=== PATIENT | female | born 1945 | race Caucasian/White ===

== ENCOUNTER → 2018-09-18 | Outpatient (CLI) | payer MEDICARE ==
--- NOTE | 2018-09-18 14:36 | PCVCIMAG ---
EXAM: VENOUS DUPLEX RIGHT UPPER EXTREMITY INDICATION: Right index finger numbness, discoloration, and pain. FINDINGS: Right arm: Satisfactory arterial waveforms in the innominate artery, right subclavian, right axillary, right brachial, right radial, and right ulnar arteries without obvious flow-limiting arterial stenosis. Right arm systolic pressure 150 mmHg and left arm 154 mmHg. IMPRESSION: Arterial duplex right arm shows no evidence of flow-limiting arterial stenosis. LOC:[place] [id number]
== END | disposition home or self-care (01) ==
LOC: PCVCIMAG 13:39
PROVIDERS: ATTEND Family Medicine
DX: R20.0 Anesthesia of skin (principal); R20.9 Unspecified disturbances of skin sensation; M79.644 Pain in right finger(s); L81.9 Disorder of pigmentation, unspecified; L60.8 Other nail disorders
CPT/HCPCS: 93931